=== PATIENT | female | born 1970 | race Caucasian/White ===

== ENCOUNTER 2021-03-05 22:49 | Emergency (ER) | payer BC ==
[~2021-03-05 22:49] MED LIST: ABILIFY 5 MG TAB5 MG PO; ASPIRIN81 MG PO; ATORVASTATIN CA20 MG PO; BENTYL 20MG TAB20 MG PO; GLUCOPHAGE 500500 MG PO; INDERAL TAB 2020 MG PO; LEVOTHYROXINE112 MCG PO; LISINOPRIL5 MG PO; NITROGLYCERIN0.4 MG SL; PHENERGAN 25 MG25 M1 PO; PHENTERMINE H37.5 M1 PO; PROTONIX 40 MG40 M1 PO; WELLBUTRIN XL300 M1 PO; XANAX1 MG PO; ZOFRAN4 MG PO
[2021-03-06 00:01] LABS: RED BLOOD COUNT 5.1 M/UL (4.00-5.10); WHITE BLOOD COUNT 10.1 K/UL (4.5-11.0)
[2021-03-06 00:16] LABS: BUN/CREATININE RATIO 11 (0-10)
[2021-03-06] MEDS ORDERED: MOBIC7.5 MG PO (03:33)
== END 2021-03-06 03:39 | disposition home or self-care (01) ==
LOC: ER1 22:49
PROVIDERS: Student in an Organized Health Care Education/Training Program
DX: R07.9 Chest pain, unspecified (principal); E11.9 Type 2 diabetes mellitus without complications
CPT/HCPCS: 71045; 80053; 82550; 82553; 83874; 84484; 85025; 93005; 99285

== ENCOUNTER → 2021-04-02 | Outpatient (CLI) | payer BC ==
[~2021-04-02] MED LIST changes: +MOBIC7.5 MG PO
== END ==
LOC: RAD 16:07
DX: M25.512 Pain in left shoulder (principal)
CPT/HCPCS: 73030

== ENCOUNTER → 2021-05-03 | Day surgery (SDC) | payer BC ==
[~2021-05-03] MED LIST changes: +ASPIRIN EC81 MG PO; +CARAFATE 1 GM TA1 GM PO; +CRESTOR5 MG PO; +ELIQUIS 5 MG TAB5 MG PO; -GLUCOPHAGE 500500 MG PO; +HYDROCODON-ACE1 EAC4 PO; +ISOSORBIDE MONO60 MG PO; -LEVOTHYROXINE112 MCG PO; +METFORMIN HCL500 M2 PO; +ONDANSETRON HCL4 MG PO; +PEPCID20 MG PO; +SYNTHROID125 MCG PO; +ZOFRAN 4 MG TAB4 MG PO
== END | disposition home or self-care (01) ==
LOC: OR 07:35
DX: Z12.11 Encounter for screening for malignant neoplasm of colon (principal); K21.9 Gastro-esophageal reflux disease without esophagitis; I10 Essential (primary) hypertension; Z88.1 Allergy status to other antibiotic agents; Z20.822 Contact with and (suspected) exposure to COVID-19; Z87.11 Personal history of peptic ulcer disease
CPT/HCPCS: 43235; G0121; 82962; 84703; J2001; J2250; J2704; J3010; J7030; U0002

== ENCOUNTER 2021-06-09 13:10 | Emergency (ER) | payer BC ==
[~2021-06-09 13:10] MED LIST changes: -ELIQUIS 5 MG TAB5 MG PO
[2021-06-09] MEDS ORDERED: ELIQUIS 5 MG TAB5 MG PO (17:40)
== END 2021-06-09 18:00 | disposition home or self-care (01) ==
LOC: ER1 13:10
DX: I70.208 Unspecified atherosclerosis of native arteries of extremities, other extremity (principal); Z88.1 Allergy status to other antibiotic agents
CPT/HCPCS: 93931; 99283

== ENCOUNTER 2021-06-25 05:19 | Emergency (ER) | payer BC ==
[~2021-06-25 05:19] MED LIST changes: +ELIQUIS 5 MG TAB5 MG PO
== END 2021-06-25 06:48 | disposition home or self-care (01) ==
LOC: ER1 05:19
DX: S09.90XA Unspecified injury of head, initial encounter (principal); I10 Essential (primary) hypertension; E11.9 Type 2 diabetes mellitus without complications; Z98.61 Coronary angioplasty status; Z79.01 Long term (current) use of anticoagulants; W22.8XXA Striking against or struck by other objects, initial encounter
CPT/HCPCS: 70450; 99283